=== PATIENT | female | born 1985 | race Caucasian/White ===

== ENCOUNTER 2017-04-20 18:53 | Emergency (ER) | payer OTHER ==
[~2017-04-20] VITALS: Ht 170.2 cm; Wt 99.8 kg
[~2017-04-20 18:53] MED LIST: NOHOMEMEDICATIONS; VICODIN 5-5001 EACH PO
[2017-04-20] MEDS ORDERED: NORGESTIMATE-E1 EACH PO (18:57)
== END 2017-04-20 19:34 | disposition home or self-care (01) ==
LOC: ER 18:53
DX: S86.912A Strain of unspecified muscle(s) and tendon(s) at lower leg level, left leg, initial encounter (principal); F10.99 Alcohol use, unspecified with unspecified alcohol-induced disorder; Z90.49 Acquired absence of other specified parts of digestive tract; X58.XXXA Exposure to other specified factors, initial encounter; Y93.89 Activity, other specified; Y92.89 Other specified places as the place of occurrence of the external cause; Y99.8 Other external cause status